=== PATIENT | male | born 1990 | race Two or more races ===

== ENCOUNTER 2016-05-24 15:10 | Emergency (ER) | payer MEDICARE ==
--- NOTE | ~2016-05-24 | ER ---
PATIENT'S NAME: AGNIESZKA ROJAS [facility] AGE: 25 Y [address] ROOM: [place] [address] LOCATION: [facility] ADMIT DATE: 05/24/2016 ER/Outpatient Report DISCHARGE DATE: 05/24/2016 FAMILY PHYSICIAN: Physician, Unknown ATTENDING PHYSICIAN: Viviane Rollins Time of patient arrival: 1510 hours. Time of patient evaluation: 1517 hours. CHIEF COMPLAINT: Nausea, vomiting, diarrhea. HISTORY OF PRESENT ILLNESS: This is a 25-year-old male, who presents to the ER. He states he has not been feeling well for the past 24 hours. The patient states that he has had nausea, vomiting, and diarrhea. He states he has a friend, who also has similar illness. He states that he was at Dr. Smalls's office for a checkup, and they checked his blood pressure and told them that he had a high blood pressure and was to be seen by his primary care physician. His coverage specialist rn states that he does not have insurance. Therefore, they came here to the emergency room. The patient states that he does not believe he has been running any fevers. He has had no cough. He denies any shortness of breath. No chest pain. He thinks he has had approximately 20 episodes of vomiting and 5 diarrheal bowel movements in the last 24-hour period. He denies any other problems at this time. ALLERGIES: NO KNOWN ALLERGIES. MEDICATIONS: Please see medication list in nurse's notes. PAST MEDICAL HISTORY: ADHD, anxiety, schizophrenia, PTSD, bipolar. PAST SURGERIES: None. SOCIAL HISTORY: He does smoke cigarettes. Denies any drug or alcohol use. REVIEW OF SYSTEMS: A 10-point review of system was completed and was negative with the exception of those discussed in the HPI. PATIENT'S NAME: AGNIESZKA ROJAS [facility] AGE: 25 Y [address] ROOM: [place] [address] LOCATION: [facility] ADMIT DATE: 05/24/2016 ER/Outpatient Report DISCHARGE DATE: 05/24/2016 FAMILY PHYSICIAN: Physician, Unknown ATTENDING PHYSICIAN: Viviane Rollins PHYSICAL EXAMINATION: VITAL SIGNS: Height 5 feet 6 inches, stated; weight 77.9 kg, taken; blood pressure 138/92; pulse 153; respirations 20; temperature 97.8 degrees, tympanically; and saturations are 95% on room air. [place] Coma Score is 15. GENERAL: Alert, pale 25-year-old, in no acute distress. He is slightly diaphoretic upon initial examination. HEENT: Head normocephalic. Eyes: Pupils are equal and reactive to light. Ears: TMs display good reflexes bilaterally. Auditory canals are clear. Nose: Turbinates are pink with no drainage. Throat: No exudates or erythema. He does have tacky mucous membranes. NECK: Supple. No lymphadenopathy. LUNGS: Clear to auscultation bilaterally. No wheezes or crackles. HEART: Tachycardic. Normal rhythm. No lifts, thrills, or murmurs. ABDOMEN: Soft. It is nontender. He has good bowel sounds throughout. No masses are palpated. EXTREMITIES: No clubbing or cyanosis. SKIN: Cool to touch. He has new tattoos to the right side of his neck and to his right facial cheek. LABORATORY DATA: CBC: White count is 10.6, hemoglobin 17.6. CMS: Sodium 147, potassium 3.5, glucose 173, calcium is 10.9, BUN is 10, creatinine 1.6, albumin 5.5, globulin 4.7, total protein is 10.2, alkaline phosphatase 120, AST 60, ALT is 95, estimated GFR is 53. Initial cardiac enzymes: CPK is 1390, CK-MB is 10.2, troponin I is less than 0.040. Two-hour dxbpr-[id number]-twnp: CPK is 1197, CK-MB is 7.3, troponin I is less than 0.040. Stool series was done. He does have occult blood, moderate white blood cells. No Giardia or Cryptosporidium. C. diff was negative. Urinalysis is negative for any infection. He is positive for amphetamines. EKG shows sinus tachycardia. ASSESSMENT AND PLAN: Discussed the patient's care with both Dr. Rollins and Dr. Barnes. Dr. Barnes also evaluated the patient. The patient did get an IV started, and we did give him a liter of IV fluids along with 4 mg of Zofran. The patient had no further emesis while he was here, but did have to use the restroom several times. The PATIENT'S NAME: AGNIESZKA ROJAS [facility] AGE: 25 Y [address] ROOM: [place], [place] [address] LOCATION: [facility] ADMIT DATE: 05/24/2016 ER/Outpatient Report DISCHARGE DATE: 05/24/2016 FAMILY PHYSICIAN: , Unknown ATTENDING PHYSICIAN: Viviane Rollins patient refused a second liter of fluids. The patient was able to eat ice chips while he was here in the emergency room. We will dismiss the patient to home with a prescription for Cipro and Zofran to use as directed. He needs to do small amounts of fluids frequently, monitor his symptoms closely, and follow up with his primary care physician in 1-2 days for followup care. The patient and the patient's coverage specialist rn understand and agree with care. KERRI SR PA-C FOR MD LARRY ALDANA/vega /[id number] ATTENDING ADDENDUM: I saw and evaluated the patient. The patient has a nonsurgical abdominal exam. He has mild diffuse TTP, no rebound, rigidity or guarding. I have discussed with the PA, agree with the PA's findings and plan and agree with the documented note above. RAUL BARNES DO d: 05/25/16 0020 t: 06/07/16 0702, OUTPATIENT REPORT
[2016-05-24 15:53] LABS: BASOPHIL % 0.2 %; HEMATOCRIT 49.3 % (37.0-53.0); HEMOGLOBIN 17.6 g/dL (12.0-17.0); IMMATURE GRANULOCYTE # 0.1 K/uL (0.0-0.3); IMMATURE GRANULOCYTE % 0.6 %; LYMPHOCYTE # 3.6 K/uL (0.8-4.0); LYMPHOCYTE % 34.4 %; MCH 31.6 pg (27.0-34.0); MCHC 35.7 gm/dL (32.0-36.5); MONOCYTE # 0.9 K/uL (0.0-1.0); MONOCYTE % 8.7 %; MPV 10.1 fl (9.4-12.4); NEUTROPHIL # (ANC) 5.9 K/uL (1.4-9.0); NEUTROPHIL % 56.1 %; NRBC % 0 /100WBC (0-0.00); RBC 5.57 M/uL (4.00-6.00); RDW-CV 12.3 % (11.9-14.6); WBC 10.6 K/uL (4.0-11.0)
[2016-05-24 15:57] LABS: MCV 88.5 fl (83.0-98.0); PLATELET COUNT 345 K/uL (150-450)
[2016-05-24 16:10] LABS: ALBUMIN 5.5 gm/dL (3.5-5.0); CALCIUM 10.9 mg/dL (8.5-10.5); CREATININE 1.6 mg/dL (0.6-1.3); POTASSIUM 3.5 mMol/L (3.7-5.1)
[2016-05-24 16:11] LABS: ANION GAP 13.5 (10.0-19.0); TOTAL BILIRUBIN 0.7 mg/dL (0.0-1.5); TOTAL PROTEIN 10.2 g/dL (6.0-8.4)
[2016-05-24 17:32] LABS: CPK 1390 IU/L (35-332)
[2016-05-24 17:49] LABS: BILIRUBIN URINE NEGATIVE (NEGATIVE); BLOOD URINE NEGATIVE /UL (NEGATIVE); COLOR URINE YELLOW (YELLOW); GLUCOSE URINE NEGATIVE (NEGATIVE); KETONE URINE 50 mg/dL (NEGATIVE); LEUKOCYTES URINE 25 /UL (NEGATIVE); NITRITE URINE NEGATIVE (NEGATIVE); PROTEIN URINE 100 mg/dL (NEGATIVE); TURBIDITY URINE CLEAR (CLEAR); UROBILINOGEN URINE NORMAL (NORMAL)
[2016-05-24 17:57] LABS: BACTERIA URINE FEW (NEGATIVE); EPITHELIAL URINE 0-2 #/HPF (NEGATIVE); MUCUS URINE 1+ (NEGATIVE); WBC CLUMPS URINE RARE (NEGATIVE)
[2016-05-24 18:11] LABS: BARBITURATE NEGATIVE (NEGATIVE); COCAINE NEGATIVE (NEGATIVE); OPIATES NEGATIVE (NEGATIVE)
[2016-05-24 18:12] LABS: AMPHETAMINE POSITIVE (NEGATIVE)
[2016-05-24 18:31] LABS: CPK 1197 IU/L (35-332)
== END 2016-05-24 18:29 | disposition disaster alternative care site (69) ==
LOC: GMED 15:10
PROVIDERS: Family Medicine
DX: R11.2 Nausea with vomiting, unspecified (principal); R19.7 Diarrhea, unspecified; F41.9 Anxiety disorder, unspecified; F90.9 Attention-deficit hyperactivity disorder, unspecified type; F20.9 Schizophrenia, unspecified; F43.10 Post-traumatic stress disorder, unspecified; F31.9 Bipolar disorder, unspecified; F17.210 Nicotine dependence, cigarettes, uncomplicated; Z79.899 Other long term (current) drug therapy
CPT/HCPCS: G0480; J2405; J7030

== ENCOUNTER → 2016-05-24 | Outpatient (CLI) | payer MEDICARE ==
[~2016-05-24] MED LIST: ARTANE2 MG PO; ATARAX SYR10 MG/5 ML PO; CATAPRES0.1 MG PO; CLONAZEPAM1 MG PO; COLACE100 MG PO; DEPAKOTE EXTEN500 MG PO; KLONOPIN1 MG PO; LAMICTAL100 MG PO; NICODERM / HABIT7 MG TRANS; NICOTINE PATCH1 EAC1 TOP; RISPERDAL2 MG PO; SEROQUEL XR200 MG PO; SEROQUEL XR400 MG PO; SEROQUEL200 MG PO; SEROQUEL400 MG PO; TYLENOL325 MG PO; VISTARIL50 MG PO
== END | disposition disaster alternative care site (69) ==
LOC: GAMB 20:33
DX: K92.0 Hematemesis (principal); K52.9 Noninfective gastroenteritis and colitis, unspecified; F90.9 Attention-deficit hyperactivity disorder, unspecified type; Z79.899 Other long term (current) drug therapy
CPT/HCPCS: A0425; A0429